=== PATIENT | male | born 1990 | race Caucasian/White ===

== ENCOUNTER 2019-12-13 09:46 | Emergency (ER) | payer SELFPAY ==
[2019-12-13] MEDS ORDERED: MORPHINE SULFATE 2 MG INJ IV ONE (09:54)
--- NOTE | 2019-12-13 09:54 | ERPHSYRPT ---
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 Following his delivery patient began driving and had worsening chest pain and dizziness. Patient states his chest pain was sharp central chest location with some radiation into his left arm described as tingling. Patient has no cardiac history. Patient was placed on Ativan recently following his father's 2 weeks ago. Patient states that this has really affected him. Patient does have a history of hypertension and takes lisinopril and Coreg. Patient called 911 after he pulled off the road because of his symptoms. Ambulance service brought him into the emergency room where his symptoms have nearly relieved. EMS did give the patient 324 mg of baby aspirin and 0.4 mg of sublingual nitroglycerin. Patient states this is the third episode of this type since his father 2 weeks ago Timing/Duration: yesterday Activities at Onset: emotional stress Quality: tightness Chest Pain Radiation: arm (Left) Severity of Pain-Max: moderate Severity of Pain-Current: none Modifying Factors: Improves With: nothing Associated Symptoms: dizziness Prior Chest Pain/Cardiac Workup: no prior chest pain Nitro Today/Relief: 0.4 mg x 1, provided by EMS Aspirin Treatment Today: 325 mg x 1, provided by EMS Allergies/Adverse Reactions: No Known Drug Allergies Allergy (Verified 12/13/19 10:05) Home Medications: Albuterol Sulfate [Proair Hfa] 8.5 gm IH UD PRN 12/13/19 [History] Fluoxetine HCl 40 mg PO DAILY 12/13/19 [History] Lisinopril/Hydrochlorothiazide [Lisinopril-Hctz 20-12.5 mg Tab] 1 each PO DAILY 12/13/19 [History] Lorazepam 1 mg [Ativan 1 MG] 1 mg PO BID 12/13/19 [History] - Review of Systems Constitutional: No Symptoms Eyes: No Symptoms Ears, Nose, & Throat: No Symptoms Respiratory: No Symptoms Cardiac: Chest Pain Abdominal/Gastrointestinal: No Symptoms Genitourinary Symptoms: No Symptoms Musculoskeletal: No Symptoms Skin: No Symptoms Neurological: Dizziness Psychological: No Symptoms Endocrine: No Symptoms Hematologic/Lymphatic: No Symptoms Immunological/Allergic: No Symptoms All Other Systems: Reviewed and Negative - Past Medical History Neurological History: No Pertinent History ENT History: No Pertinent History Cardiac History: No Pertinent History Respiratory History: No Pertinent History Endocrine Medical History: No Pertinent History Musculoskeletal History: No Pertinent History GI Medical History: No Pertinent History History: No Pertinent History Psycho-Social History: Anxiety Male Reproductive Disorders: No Pertinent History - Past Surgical History Neuro Surgical History: No Pertinent History Cardiac: No Pertinent History Respiratory: No Pertinent History Gastrointestinal: No Pertinent History Genitourinary: No Pertinent History Musculoskeletal: No Pertinent History Male Surgical History: No Pertinent History - Nursing Vital Signs Nursing Vital Signs: Initial Vital Signs Temperature 97.8 F 12/13/19 09:48 Pulse Rate 72 12/13/19 09:48 Blood Pressure 132/94 12/13/19 09:48 O2 Sat by Pulse Oximetry 100 12/13/19 09:48 Pain Scale Pain Intensity 2 - Physical Exam General Appearance: no apparent distress, alert, anxiety Eye Exam: PERRL/EOMI, eyes nml inspection Ears, Nose, Throat Exam: normal ENT inspection, moist mucous membranes Neck Exam: normal inspection, non-tender, supple, full range of motion Respiratory Exam: normal breath sounds, chest tenderness, lungs clear, respiratory distress Cardiovascular Exam: regular rate/rhythm, normal heart sounds, normal peripheral pulses Gastrointestinal/Abdomen Exam: soft, normal bowel sounds, No tenderness Rectal Exam: not done Back Exam: normal inspection, normal range of motion, No CVA tenderness, No vertebral tenderness Extremity Exam: normal inspection, normal range of motion, pelvis stable Neurologic Exam: alert, oriented x 3, cooperative, blender II-XII nml as tested Skin Exam: normal color, warm, dry Lymphatic Exam: No adenopathy SpO2 Interpretation: normal O2 Delivery: Room Air - Course Nursing assessment & vital signs reviewed: Yes EKG Interpreted by Me: RATE ([id number]), Sinus Rhythm, NORMAL INTERVALS, NORMAL QRS, Other (No comparison EKG) Ordered Tests: Active Orders 24 hr Category Date Time Status EKG-ER Only STAT Care 12/13/19 09:54 Active IV Insertion STAT Care 12/13/19 09:54 Active Pulse Oximetry (ED) STAT Care 12/13/19 09:54 Active CHEST 1 VIEW (PORTABLE) Stat Exams 12/13/19 09:54 Completed CBC W DIFF Stat Lab 12/13/19 10:05 Completed CMP Stat Lab 12/13/19 10:05 Completed NT PRO BNP Stat Lab 12/13/19 10:05 Completed PROTIME WITH INR Stat Lab 12/13/19 10:05 Completed TROPONIN Q3H Lab 12/13/19 10:05 Completed TROPONIN Q3H Lab 12/13/19 13:00 Ordered TROPONIN Q3H Lab 12/13/19 16:00 Ordered TROPONIN Q3H Lab 12/13/19 19:00 Ordered TROPONIN Q3H Lab 12/13/19 22:00 Ordered Medication Summary Generic Name Dose Route Start Last Admin Trade Name Freq PRN Reason Stop Dose Admin Ceftriaxone Sodium/Dextrose 1 g in 50 mls @ 100 mls/hr 12/13/19 10:52 10:58 Rocephin 1 Gm-D5w 50 Ml Bag IV 12/13/19 11:21 100 mls/hr STAT STA 100 mls/hr Administration Discontinued Medications Generic Name Dose Route Start Last Admin Trade Name Freq PRN Reason Stop Dose Admin Ceftriaxone Sodium/Dextrose Confirm 12/13/19 10:56 Rocephin 1 Gm-D5w 50 Ml Bag Administered 12/13/19 10:57 Dose 1 g in 50 mls @ ud IV .STK-MED ONE Lorazepam 1 mg 12/13/19 10:27 12/13/19 10:44 Ativan 2 Mg/1 Ml Vial IV 12/13/19 10:28 1 mg STAT ONE Administration Lorazepam Confirm 12/13/19 10:44 Ativan 2 Mg/1 Ml Vial Administered 12/13/19 10:45 Dose 2 mg .ROUTE .STK-MED ONE Morphine Sulfate 2 mg 12/13/19 09:54 12/13/19 10:04 Morphine Sulfate 2 Mg Inj IV 12/13/19 09:55 Not Given STAT ONE Lab/Rad Data: Laboratory Result Diagrams 12/13/19 10:05 12/13/19 10:05 Laboratory Results 12/13/19 12/13/19 12/13/19 Range/Units 10:05 10:05 10:05 WBC (4.0-10.5) K/mm3 RBC (4.1-5.6) M/mm3 Hgb (12.5-18.0) gm/dl Hct (42-50) % MCV (78-100) fl MCH (26-32) pg MCHC (32-36) g/dl RDW (11.5-14.0) % Plt Count (150-450) K/mm3 MPV (7.5-11.0) fl Gran % (36.0-66.0) % Eos # (Auto) (0-0.5) Absolute Lymphs (auto) (1.0-4.6) Absolute Monos (auto) (0.0-1.3) Lymphocytes % (24.0-44.0) % Monocytes % (0.0-12.0) % Eosinophils % (0.00-5.0) % Basophils % (0.0-0.4) % Absolute Granulocytes (1.4-6.9) Basophils # (0-0.4) PT 12.1 (8.83-12.87) SECONDS INR 1.07 (0.8-3.0) Sodium 139 (137-145) mmol/L Potassium 4.1 (3.5-5.1) mmol/L Chloride 103 (98-107) mmol/L Carbon Dioxide 26 (22-30) mmol/L Anion Gap 13.7 (5-15) MEQ/L BUN 19 (9-20) mg/dL Creatinine 0.80 (0.66-1.25) mg/dL Estimated GFR > 60.0 ML/MIN Glucose 102 (74-106) mg/dL Calcium 9.5 (8.4-10.2) mg/dL Total Bilirubin 0.70 (0.2-1.3) mg/dL AST 79 H (17-59) U/L ALT 64 H (0-50) U/L Alkaline Phosphatase 97 (38-126) U/L Troponin I < 0.012 (0.000-0.034) ng/mL NT-Pro-B Natriuret Pep 15.8 (0-450) pg/mL Serum Total Protein 7.8 (6.3-8.2) g/dL Albumin 4.6 (3.5-5.0) g/dL 12/13/19 Range/Units 10:05 WBC 8.3 (4.0-10.5) K/mm3 RBC 4.71 (4.1-5.6) M/mm3 Hgb 14.4 (12.5-18.0) gm/dl Hct 42.7 (42-50) % MCV 90.7 (78-100) fl MCH 30.6 (26-32) pg MCHC 33.7 (32-36) g/dl RDW 12.8 (11.5-14.0) % Plt Count 242 (150-450) K/mm3 MPV 10.4 (7.5-11.0) fl Gran % 69.6 H (36.0-66.0) % Eos # (Auto) 0.30 (0-0.5) Absolute Lymphs (auto) 1.57 (1.0-4.6) Absolute Monos (auto) 0.64 (0.0-1.3) Lymphocytes % 18.9 L (24.0-44.0) % Monocytes % 7.7 (0.0-12.0) % Eosinophils % 3.6 (0.00-5.0) % Basophils % 0.2 (0.0-0.4) % Absolute Granulocytes 5.77 (1.4-6.9) Basophils # 0.02 (0-0.4) PT (8.83-12.87) SECONDS INR (0.8-3.0) Sodium (137-145) mmol/L Potassium (3.5-5.1) mmol/L Chloride (98-107) mmol/L Carbon Dioxide (22-30) mmol/L Anion Gap (5-15) MEQ/L BUN (9-20) mg/dL Creatinine (0.66-1.25) mg/dL Estimated GFR ML/MIN Glucose (74-106) mg/dL Calcium (8.4-10.2) mg/dL Total Bilirubin (0.2-1.3) mg/dL AST (17-59) U/L ALT (0-50) U/L Alkaline Phosphatase (38-126) U/L Troponin I (0.000-0.034) ng/mL NT-Pro-B Natriuret Pep (0-450) pg/mL Serum Total Protein (6.3-8.2) g/dL Albumin (3.5-5.0) g/dL - Progress Air Movement: good Progress Note: 12/13/19 11:05 Chest x-ray reveals mild right middle lobe infiltrate versus atelectasis Blood Culture(s) Obtained: No Antibiotics given: Yes Counseled pt/family regarding: lab results, diagnosis, need for follow-up, rad results - Departure Departure Disposition: Home Clinical Impression: Chest pain, non-cardiac, Anxiety in acute stress reaction, Right pulmonary infiltrate on CXR Condition: Stable Critical Care Time: No Additional Instructions: Drink plenty of fluids. Take medication as prescribed. Follow-up with your primary care physician for further management Prescriptions: Azithromycin 250 mg [Zithromax 250 MG TABLET] 250 mg PO ZPACK #6 tablet
--- NOTE | 2019-12-13 10:09 | XRAY ---
Indication: Chest pain. Comparison: None Portable chest demonstrates mild right middle lobe infiltrate/atelectasis silhouetting the right heart margin. Remaining heart, left lung, and bony thorax normal.
[2019-12-13 10:14] LABS: Absolute Neutrophil Ct (ANC) 5.77 (1.4-6.9); BASOPHIL % 0.2 % (0.0-0.4); Basophil (Absolute #) 0.02 (0-0.4); Eosinophil % 3.6 % (0.00-5.0); Hematocrit 42.7 % (42-50); Hemoglobin 14.4 gm/dl (12.5-18.0); Lymphocyte (Absolute #) 1.57 (1.0-4.6); Lymphocytes % 18.9 % (24.0-44.0); Mean Cell Volume 90.7 fl (78-100); Mean Corpuscular Hemoglobin 30.6 pg (26-32); Mean Corpuscular Hgb Concent. 33.7 g/dl (32-36); Mean Platelet Volume 10.4 fl (7.5-11.0); Monocyte (Absolute #) 0.64 (0.0-1.3); Monocytes % 7.7 % (0.0-12.0); Neutrophil % 69.6 % (36.0-66.0); Platelet Count 242 K/mm3 (150-450); Red Blood Count 4.71 M/mm3 (4.1-5.6); Red Cell Distribution Width 12.8 % (11.5-14.0); White Blood Count 8.3 K/mm3 (4.0-10.5)
[2019-12-13] MEDS ORDERED: Ativan 2 MG/1 ML VIAL IV ONE (10:27)
[2019-12-13 10:37] LABS: INR 1.07 (0.8-3.0); PROTIME 12.1 SECONDS (8.83-12.87)
[2019-12-13] MEDS ORDERED: Ativan 2 MG/1 ML VIAL ONE (10:44)
[2019-12-13 10:51] LABS: ALBUMIN 4.6 g/dL (3.5-5.0); ALKALINE PHOSPHATASE 97 U/L (38-126); ANION GAP 13.7 MEQ/L (5-15); BLOOD UREA NITROGEN 19 mg/dL (9-20); CHLORIDE 103 mmol/L (98-107); Calcium 9.5 mg/dL (8.4-10.2); Carbon Dioxide 26 mmol/L (22-30); Glucose 102 mg/dL (74-106); NT PRO BNP 15.8 pg/mL (0-450); Potassium 4.1 mmol/L (3.5-5.1); SGOT/AST 79 U/L (17-59); SGPT/ALT 64 U/L (0-50); SODIUM 139 mmol/L (137-145); Total Protein 7.8 g/dL (6.3-8.2)
[2019-12-13] MEDS ORDERED: ROCEPHIN 1 Gm-D5w 50 ml Bag** 1 G/50 ML IVPB IV STA (10:52)
[2019-12-13] MEDS ORDERED: ROCEPHIN 1 Gm-D5w 50 ml Bag** 1 G/50 ML IVPB IV ONE (10:56)
[2019-12-13 11:02] VITALS: BP 135/81; PULSE 65; O2SAT 100
== END 2019-12-13 11:20 | disposition home or self-care (01) ==
LOC: ED 09:46
DX: R07.89 Other chest pain (principal); F41.1 Generalized anxiety disorder; F43.0 Acute stress reaction; R91.8 Other nonspecific abnormal finding of lung field; R42 Dizziness and giddiness; I10 Essential (primary) hypertension; Z79.899 Other long term (current) drug therapy
CPT/HCPCS: 36415; 71045; 80053; 83880; 84484; 85025; 85610; 93005; 94760; 96365; 96374; 99284; J0696; J2060